=== PATIENT | female | born 1960 | race Caucasian/White ===

== ENCOUNTER → 2016-12-08 | Outpatient (CLI) | payer MEDICARE ==
[~2016-12-08] MED LIST: AMBIEN 5MG TABLE5 MG PO; AMITRIPTYLINE H10 M1 PO; AMITRIPTYLINE50 MG PO; AMOXICILLIN 8751 TAB PO; ASPI325T6 PO; ASPIR-LOW81 MG PO; ASPIR-LOX325 MG PO; ASPIRIN 32325 MG/TAB PO; ASPIRIN 81M81 MG/TA2 PO; ASPIRIN E.C. 8181 MG PO; ATIVAN 0.50.5 MG/TAB PO; ATROVENT INHALE14 GM IH; AXERT12.5 MG PO; AZO-STANDARD95 MG PO; BENADRYL25 M2 PO; BIRTH CONTROL; BONINE25 MG PO; BUFFERED ASPIR325 M1 PO; BYSTOLIC5 MG PO; CARDENE 20MG CA20 M1 PO; CARDENE 20MG CA20 MG PO; CARISOPRODOL; CARISOPRODOL350 MG PO; CATAPRES 0.1MG0.1 MG PO; CEFTIN 250250 MG/TAB PO; CEFTIN500 MG PO; CELEXA20 MG PO; CELEXA40 MG PO; CHANTIX 1MG1 MG PO; CHANTIX START M1 TAB PO; CITALOPRAM20 MG PO; CLARITIN 1010 MG/TAB PO; CLOPIDOGREL; COLACE 100100 MG/CAP PO; COLACE1 SUP PO; CRANBERRY FRUI405 MG PO; CRANBERRY450 MG PO; CYMBALTA; CYMBALTA 60MG60 MG PO; DARVOCET N 101 UDTAB PO; DEXILANT30 MG PO; DISALCID750 MG PO; EFFIENT10 MG PO; ESTRACE PO; FERROUS SU325 MG/TAB PO; FLEXERIL 1010 MG/TAB PO; FLEXERIL5 MG PO; FUROSEMIDE; GABAPENTIN300 M1 PO; GYNODIOL1 MG PO; HYDROCHLOR50 MG PO; IMDUR 30MG30 MG/TAB PO; IMDUR30 MG PO; INSULIN NOVO100 U/ML SC; ISMO 20MG20 MG PO; KLONOPIN 1MG1 M1 PO; KLONOPIN 1MG1 MG PO; LASIX 20MG TABL20 MG PO; LASIX 40MG TABL40 MG PO; LASIX 80MG TABL80 MG PO; LASIX40 MG PO; LEVOTHROID0.1 MG PO; LEVOTHYROXINE0.1 MG PO; LEVOXYL; LEVOXYL0.1 MG PO; LEXAPRO 10MG10 MG PO; LINZESS145CAP PO; LIPITOR 40MG TA40 MG PO; LISINOPRIL2.5 MG PO; LOPRESSOR; LOPRESSOR 225 MG/TAB PO; LOPRESSOR 550 MG/TAB PO; LYRICA 150MG C150 MG PO; MACROBID 1100 MG/CAP PO; MAG-OX 400400 MG/TAB PO; MAGNESIUM250 M1 PO; METOPROLOL SR25 MG PO; METOPROLOL25 MG PO; METOPROLOL50 MG PO; MIRALAX PA17 GM/Dose PO; NAPROSYN500 MG PO; NASONEX SPRAY17 GM NS; NATURAL POTASS595 MG PO; NEURONTIN100 MG/CAP PO; NEURONTIN300 MG/CAP PO; NEXIUM40 MG PO; NIACIN500 M1 PO; NIACOR500 MG PO; NITROQUICK0.4 MG SL; NITROSTAT0.4 MG SL; NITROSTAT0.4 MG/TAB SL; NO DOZ; NORCO 325 MG-51 TAB PO; NOVOLOG 100U100 U/M1 SQ; NOVOLOG 100U100 U/ML SQ; NOVOLOG INSULIN PUMP SC; NOVOLOG100 U/ML; NOVOLOG100 U/ML IV; NOVOLOG100 U/ML SC; NOVOLOGMIX70/30 SC; PANTOPRAZOLE SO20 MG PO; PLAVIX 75MG TAB75 MG PO; POTASSIUM CHLO10 ME2 PO; POTASSIUM CL 220 MEQ PO; POTASSIUM595 MG PO; POTASSIUM99 MG PO; PRAMLINTIDE ACETATE; PREDNISONE10 MG PO; PREVACID30 MG PO; PRILOSEC 20MG20 MG PO; PRINIVIL; PRINIVIL2.5 MG PO; PROAIR HFA0.09 MG/AC IH; PROTONIX 40MG T40 MG PO; PROTONIX20 MG PO; PROVENTIL0.09 MG/A1 IH; PROZAC 20MG20 MG PO; RANEXA1000 MG PO; REGLAN 10MG10 MG/TAB PO; RT ADVAIR 228 DISKUS IH; RT SPIRIVA18 MCG IH; RT SPIRIVA18 MCG INH; SALSALATE500 MG PO; SALSALATE750 MG PO; SAVELLA25 MG PO; SAVELLA50 MG PO; SEE LIST; SOMA 350MG350 MG/TAB PO; SPIRIVA; SPIRIVA HANDIH18 MCG IH; SPIRIVA INH IH; SUDAFED30 MG PO; SYMLIN; SYMLIN0.6 MG/ML SC; TYLENOL ARTHRI650 M1 PO; ULTRAM 50MG TAB50 MG PO; ULTRAM ER100 MG PO; UNABLE; VIIBRYD20 MG; VIIBRYD20 MG PO; VIIBRYD40 MG PO; VITAMIN C BUFF500 MG PO; VITAMIN C1 TAB PO; VITAMIN C500 MG PO; VITAMIN D 400400 IU PO; VITAMIN D31000 I1 PO; VIVARIN200 MG PO; VYTORIN; VYTORIN PO; ZESTRIL 10MG10 MG PO; ZESTRIL 5MG5 MG PO; ZESTRIL2.5 MG PO; ZITHROMAX 250M250 MG PO; ZOCOR 20MG20 MG PO; ZOCOR 40MG40 MG PO; ZOFRAN 4MG T4 MG/TAB PO; ZOFRAN ODT4 MG PO; ZOLPIDEM5 MG PO; [UNRECOGNIZED DRUG - CODE] PO; [UNRECOGNIZED DRUG - OTHER]; [UNRECOGNIZED DRUG - OTHER]; [UNRECOGNIZED DRUG - OTHER]; [UNRECOGNIZED DRUG - OTHER]; [UNRECOGNIZED DRUG - OTHER]; [UNRECOGNIZED DRUG - OTHER] PO; [UNRECOGNIZED DRUG - REMARK] PO; [UNRECOGNIZED DRUG - REMARK] PO; [UNRECOGNIZED DRUG - SUPPLY]; see list
== END ==
LOC: BHSO 13:03
DX: F33.1 Major depressive disorder, recurrent, moderate (principal)

== ENCOUNTER 2017-02-21 11:43 | Inpatient (IN) | payer MEDICARE ==
[~2017-02-21] VITALS: Ht 154.9 cm; Wt 67.4 kg
[2017-02-21] VITALS (468 sets, daily range): BP systolic 101–128; BP diastolic 42–65; PULSE 89–93; TEMP 37.8; O2SAT 91–100
[~2017-02-21 11:43] MED LIST changes: -ASPIRIN 81M81 MG/TA2 PO; -AXERT12.5 MG PO; -BONINE25 MG PO; -CRANBERRY FRUI405 MG PO; -CRANBERRY450 MG PO; -KLONOPIN 1MG1 MG PO; -MACROBID 1100 MG/CAP PO; -NIACOR500 MG PO; -PROZAC 20MG20 MG PO; -ZOFRAN 4MG T4 MG/TAB PO
[2017-02-21 12:37] LABS: BASO % 0.1 % (0.0-2.0); GRAN # 18.3 (1.4-6.5); GRAN % 89.8 % (42.2-75.2); HEMOGLOBIN 12.1 g/dl (12.5-16.0); LYMPH # 0.7 (1.2-3.4); LYMPH % 3.4 % (20.0-51.0); MEAN CELL VOLUME 95 fl (80.0-100.0); MEAN CORPUSCULAR HEMOGLOBIN 32 pg (27.0-31.0); MEAN CORPUSCULAR HGB CONC 34 g/dl (33.0-37.0); MEAN PLATELET VOLUME 10.1 fl (7.4-10.4); MONO # 1.3 (0.1-0.6); MONO % 6.3 % (1.7-9.3); PLATELET COUNT 319 K/mm3 (130-400); RED BLOOD COUNT 3.73 M/mm3 (4.10-5.30); REDCELL DISTRIBUTION WIDTH-CV 12.3 % (11.5-14.5)
[2017-02-21 12:45] LABS: INR 1.2 (0.8-3.0); PROTHROMBIN TIME 12.8 SECONDS (9.7-12.8)
[2017-02-21 12:48] LABS: AMMONIA < 9 umol/L (11-35)
[2017-02-21 12:49] LABS: HEMATOCRIT 35.3 % (37.0-47.0); WHITE BLOOD COUNT 20.3 K/mm3 (4.8-10.8)
[2017-02-21 12:53] LABS: ADJUSTED CALCIUM 8.6 mg/dL (8.4-10.2); ALANINE AMINOTRANSFERASE 23 U/L (9-52); ALBUMIN 4.1 gm/dL (3.5-5.0); ALKALINE PHOSPHATASE 83 U/L (50-136); ANION GAP 11 mmol/L (7-16); BILIRUBIN,TOTAL 0.8 mg/dL (0.0-1.0); BLOOD UREA NITROGEN 15 mg/dL (7-17); CALCIUM 8.7 mg/dL (8.4-10.2); CARBON DIOXIDE 30 mmol/L (22-30); CHLORIDE 98 mmol/L (98-107); GLUCOSE 123 mg/dL (74-106); LIPASE 15 U/L (23-300); POTASSIUM 3.3 mmol/L (3.4-5.0); SODIUM 138 mmol/L (137-145); TOTAL PROTEIN 7.5 gm/dL (6.4-8.2)
[2017-02-21 12:55] LABS: ACETAMINOPHEN < 10 ug/mL (10-30); C-REACTIVE PROTEIN 0.5 mg/dL (0.0-0.9); SALICYLATE < 1.0 mg/dL
[2017-02-21 13:05] LABS: TROPONIN-I 0.242 ng/mL (0.000-0.034)
[2017-02-21 13:31] LABS: PH 6 (5-8); SQUAMOUS EPITHELIAL 0-2 /hpf; URINE APPEARANCE Hazy; URINE BACTERIA None Seen /hpf; URINE BILIRUBIN Negative (NEGATIVE); URINE BLOOD Negative (NEGATIVE); URINE COLOR Amber; URINE GLUCOSE 3+ (NEGATIVE); URINE KETONE Trace (NEGATIVE); URINE RBC 0-2 /hpf; URINE UROBILINOGEN Negative (NEGATIVE)
[2017-02-21 13:37] LABS: AMPHETAMINE URINE POSITIVE; BARBITURATES URINE NEGATIVE; BENZODIAZEPINES URINE POSITIVE; BUPRENORPHINE URINE NEGATIVE; METHADONE URINE NEGATIVE; OPIATES URINE NEGATIVE; OXYCODONE URINE NEGATIVE; PHENCYCLIDINE URINE NEGATIVE; PROPOXYPHENE URINE NEGATIVE; THC CANNABINOIDS URINE NEGATIVE
[2017-02-21 18:22] LABS: MAGNESIUM 1.8 mg/dL (1.6-2.3)
[2017-02-21 18:45] LABS: TROPONIN-I 0.254 ng/mL (0.000-0.034)
[2017-02-21 21:18] LABS: BASO % 0.2 % (0.0-2.0); GRAN # 9.2 (1.4-6.5); GRAN % 80.6 % (42.2-75.2); LYMPH # 1.1 (1.2-3.4); LYMPH % 9.7 % (20.0-51.0); MEAN CELL VOLUME 96 fl (80.0-100.0); MEAN CORPUSCULAR HGB CONC 34 g/dl (33.0-37.0); MEAN PLATELET VOLUME 10.1 fl (7.4-10.4); MONO # 1.1 (0.1-0.6); MONO % 9.2 % (1.7-9.3); PLATELET COUNT 254 K/mm3 (130-400); RED BLOOD COUNT 3.29 M/mm3 (4.10-5.30); REDCELL DISTRIBUTION WIDTH-CV 12.7 % (11.5-14.5); WHITE BLOOD COUNT 11.4 K/mm3 (4.8-10.8)
[2017-02-21 21:34] LABS: HEMATOCRIT 31.6 % (37.0-47.0); HEMOGLOBIN 10.8 g/dl (12.5-16.0); MEAN CORPUSCULAR HEMOGLOBIN 33 pg (27.0-31.0)
[2017-02-22] VITALS (922 sets, daily range): BP systolic 95–127; BP diastolic 39–58; PULSE 77–97; TEMP 36.4–36.6; O2SAT 80–100
[2017-02-22 06:39] LABS: BASO % 0.2 % (0.0-2.0); GRAN # 7.7 (1.4-6.5); GRAN % 71.7 % (42.2-75.2); LYMPH # 1.6 (1.2-3.4); LYMPH % 15.1 % (20.0-51.0); MEAN CELL VOLUME 99 fl (80.0-100.0); MEAN CORPUSCULAR HGB CONC 33 g/dl (33.0-37.0); MEAN PLATELET VOLUME 10.7 fl (7.4-10.4); MONO # 1.4 (0.1-0.6); MONO % 12.6 % (1.7-9.3); PLATELET COUNT 255 K/mm3 (130-400); RED BLOOD COUNT 3.25 M/mm3 (4.10-5.30); REDCELL DISTRIBUTION WIDTH-CV 13.1 % (11.5-14.5); WHITE BLOOD COUNT 10.8 K/mm3 (4.8-10.8)
[2017-02-22 06:43] LABS: HEMATOCRIT 32.3 % (37.0-47.0); HEMOGLOBIN 10.5 g/dl (12.5-16.0); MEAN CORPUSCULAR HEMOGLOBIN 32 pg (27.0-31.0)
[2017-02-22 06:52] LABS: ADJUSTED CALCIUM 8.5 mg/dL (8.4-10.2); ALBUMIN 3.1 gm/dL (3.5-5.0); BILIRUBIN,TOTAL 0.6 mg/dL (0.0-1.0); CALCIUM 7.8 mg/dL (8.4-10.2); CREATININE, serum 0.61 mg/dL (0.52-1.25); MAGNESIUM 1.9 mg/dL (1.6-2.3); PHOSPHOROUS 2.8 mg/dL (2.5-4.5); POTASSIUM 3.9 mmol/L (3.4-5.0)
[2017-02-22 07:07] LABS: TROPONIN-I 0.244 ng/mL (0.000-0.034)
[2017-02-22 21:38] LABS: INR 1.1 (0.8-3.0); PROTHROMBIN TIME 12.1 SECONDS (9.7-12.8)
[2017-02-23] VITALS (436 sets, daily range): BP systolic 110–151; BP diastolic 47–76; PULSE 71–100; TEMP 36.2; O2SAT 89–100
[2017-02-23 04:16] LABS: BASO % 0.3 % (0.0-2.0); EOS % 0.2 % (0-4.0); GRAN # 5.9 (1.4-6.5); GRAN % 66.1 % (42.2-75.2); LYMPH # 2.2 (1.2-3.4); LYMPH % 24.4 % (20.0-51.0); MEAN CELL VOLUME 98 fl (80.0-100.0); MEAN CORPUSCULAR HGB CONC 33 g/dl (33.0-37.0); MONO # 0.8 (0.1-0.6); MONO % 8.8 % (1.7-9.3); PLATELET COUNT 216 K/mm3 (130-400); RED BLOOD COUNT 3.27 M/mm3 (4.10-5.30); REDCELL DISTRIBUTION WIDTH-CV 12.8 % (11.5-14.5)
[2017-02-23 04:26] LABS: CALCIUM 7.8 mg/dL (8.4-10.2); CREATININE, serum 0.53 mg/dL (0.52-1.25); HEMATOCRIT 32.1 % (37.0-47.0); HEMOGLOBIN 10.5 g/dl (12.5-16.0); MEAN CORPUSCULAR HEMOGLOBIN 32 pg (27.0-31.0); POTASSIUM 3.5 mmol/L (3.4-5.0)
[2017-02-24 03:47] VITALS: BP 127/42; PULSE 87; TEMP 98.7
[2017-02-24 07:34] VITALS: BP 133/49; PULSE 86; TEMP 98.5
[2017-02-24 11:58] VITALS: BP 123/43; PULSE 89; TEMP 98.8
[2017-02-24 15:59] VITALS: BP 121/52; PULSE 94; TEMP 98.3
[2017-02-24 19:58] VITALS: BP 127/49; PULSE 88; TEMP 97.7
[2017-02-24 22:47] VITALS: BP 141/62; PULSE 72; TEMP 98.7
[2017-02-25 03:35] VITALS: BP 145/53; PULSE 77; TEMP 98.5
[2017-02-25 08:20] VITALS: BP 129/48; PULSE 85; TEMP 98.1
[2017-02-25] MEDS ORDERED: ASPIRIN E.C. 8181 MG PO (09:56)
[2017-02-25 11:36] VITALS: BP 142/59; PULSE 90; TEMP 98.5
== END 2017-02-25 14:35 | disposition home health service (06) | DRG 896 ==
LOC: COL.ER 11:43 → ICU 13:22 → MEDICAL 02-23 20:26
PROVIDERS: Emergency Medicine; Internal Medicine; Internal Medicine Interventional Cardiology
DX: F15.10 Other stimulant abuse, uncomplicated (principal); I21.4 Non-ST elevation (NSTEMI) myocardial infarction; J44.9 Chronic obstructive pulmonary disease, unspecified; F17.220 Nicotine dependence, chewing tobacco, uncomplicated; Z66 Do not resuscitate; E87.6 Hypokalemia; I95.9 Hypotension, unspecified; E10.649 Type 1 diabetes mellitus with hypoglycemia without coma; R56.9 Unspecified convulsions; Z96.41 Presence of insulin pump (external) (internal); Z95.1 Presence of aortocoronary bypass graft; Z79.4 Long term (current) use of insulin
CPT/HCPCS: 99232-AI; 99233-AI; 99239; C1751; C9113; J0696; J1630; J1644; J1650; J1815; J2060; J3480; J7030; J7042

== ENCOUNTER 2017-03-08 17:41 | Observation (INO) | payer MEDICARE ==
[~2017-03-08] VITALS: Ht 154.9 cm; Wt 61.8 kg
[2017-03-08 18:18] LABS: BASO % 0.3 % (0.0-2.0); EOS % 0.2 % (0-4.0); GRAN # 6.6 (1.4-6.5); GRAN % 70.6 % (42.2-75.2); HEMATOCRIT 39.8 % (37.0-47.0); HEMOGLOBIN 13.6 g/dl (12.5-16.0); LYMPH # 1.6 (1.2-3.4); LYMPH % 17.4 % (20.0-51.0); MEAN CELL VOLUME 94 fl (80.0-100.0); MEAN CORPUSCULAR HEMOGLOBIN 32 pg (27.0-31.0); MEAN CORPUSCULAR HGB CONC 34 g/dl (33.0-37.0); MEAN PLATELET VOLUME 10.3 fl (7.4-10.4); PLATELET COUNT 446 K/mm3 (130-400); RED BLOOD COUNT 4.24 M/mm3 (4.10-5.30); REDCELL DISTRIBUTION WIDTH-CV 12.5 % (11.5-14.5); WHITE BLOOD COUNT 9.4 K/mm3 (4.8-10.8)
[2017-03-08 18:21] LABS: INR 1.1 (0.8-3.0); PROTHROMBIN TIME 12.2 SECONDS (9.7-12.8)
[2017-03-08 18:24] LABS: PARTIAL THROMBOPLASTIN TIME 32.8 SECONDS (26.0-37.0)
[2017-03-08 18:33] LABS: ADJUSTED CALCIUM 9.2 mg/dL (8.4-10.2); ALANINE AMINOTRANSFERASE 28 U/L (9-52); ALBUMIN 3.8 gm/dL (3.5-5.0); ALKALINE PHOSPHATASE 130 U/L (50-136); ANION GAP 15 mmol/L (7-16); BILIRUBIN,TOTAL 0.6 mg/dL (0.0-1.0); BLOOD UREA NITROGEN 10 mg/dL (7-17); CARBON DIOXIDE 36 mmol/L (22-30); CREATININE, serum 0.73 mg/dL (0.52-1.25); GLUCOSE 110 mg/dL (74-106); SODIUM 139 mmol/L (137-145); TOTAL PROTEIN 7.2 gm/dL (6.4-8.2)
[2017-03-08 18:55] LABS: CHLORIDE 87 mmol/L (98-107); POTASSIUM 2.6 mmol/L (3.4-5.0); TROPONIN-I < 0.012 ng/mL (0.000-0.034)
[2017-03-08 20:15] LABS: PH 7 (5-8); SQUAMOUS EPITHELIAL 0-2 /hpf; URINE APPEARANCE Clear; URINE BACTERIA None Seen /hpf; URINE BILIRUBIN Negative (NEGATIVE); URINE BLOOD Negative (NEGATIVE); URINE COLOR Yellow; URINE GLUCOSE Negative (NEGATIVE); URINE KETONE Negative (NEGATIVE); URINE RBC 0-2 /hpf; URINE UROBILINOGEN Negative (NEGATIVE); URINE WBC 0-2 /hpf
[2017-03-08 20:31] LABS: AMPHETAMINE URINE NEGATIVE; BARBITURATES URINE NEGATIVE; BENZODIAZEPINES URINE NEGATIVE; BUPRENORPHINE URINE NEGATIVE; METHADONE URINE NEGATIVE; OPIATES URINE NEGATIVE; OXYCODONE URINE NEGATIVE; PHENCYCLIDINE URINE NEGATIVE; PROPOXYPHENE URINE NEGATIVE; THC CANNABINOIDS URINE NEGATIVE
[2017-03-08 21:05] LABS: TROPONIN-I < 0.012 ng/mL (0.000-0.034)
[2017-03-08 21:07] LABS: POTASSIUM 2.8 mmol/L (3.4-5.0)
[2017-03-08] MEDS ORDERED: PROZAC 20MG20 MG PO (21:28)
[2017-03-08] MEDS ORDERED: ZOFRAN 4MG T4 MG/TAB PO (21:29)
[2017-03-08] MEDS ORDERED: BONINE25 MG PO (21:29)
[2017-03-08] MEDS ORDERED: KLONOPIN 1MG1 MG PO (21:30)
[2017-03-08] MEDS ORDERED: SALSALATE750 MG PO (21:30)
[2017-03-08] MEDS ORDERED: NIACOR500 MG PO (21:31)
[2017-03-08] MEDS ORDERED: AXERT12.5 MG PO (21:31)
[2017-03-08] MEDS ORDERED: CRANBERRY FRUI405 MG PO (21:33)
[2017-03-08] MEDS ORDERED: NATURAL POTASS595 MG PO (21:33)
[2017-03-08] MEDS ORDERED: BENADRYL25 M2 PO (21:34)
[2017-03-08] MEDS ORDERED: MAGNESIUM250 M1 PO (21:36)
[2017-03-08 22:58] VITALS: BP 125/72; PULSE 71; TEMP 97.9
[2017-03-09] VITALS (761 sets, daily range): BP systolic 99–132; BP diastolic 44–83; PULSE 70–84; TEMP 97.7–98.9; O2SAT 77–100
[2017-03-09 00:01] LABS: MAGNESIUM 1.8 mg/dL (1.6-2.3)
[2017-03-09 08:06] LABS: CALCIUM 8.8 mg/dL (8.4-10.2); CREATININE, serum 0.76 mg/dL (0.52-1.25); POTASSIUM 4.3 mmol/L (3.4-5.0)
[2017-03-09] MEDS ORDERED: CRANBERRY450 MG PO (13:17)
[2017-03-09] MEDS ORDERED: ASPIRIN 81M81 MG/TA2 PO (13:21)
== END 2017-03-09 17:13 | disposition home or self-care (01) ==
LOC: COL.ER 17:41 → IMCU 20:17 → EU 03-09 10:52 → IMCU 03-09 10:52
PROVIDERS: Emergency Medicine; Family Medicine; Nurse Practitioner Family
DX: R07.9 Chest pain, unspecified (principal); E10.649 Type 1 diabetes mellitus with hypoglycemia without coma; E87.6 Hypokalemia; F33.9 Major depressive disorder, recurrent, unspecified; F41.1 Generalized anxiety disorder; F15.90 Other stimulant use, unspecified, uncomplicated; F19.94 Other psychoactive substance use, unspecified with psychoactive substance-induced mood disorder; Z79.4 Long term (current) use of insulin; Z96.41 Presence of insulin pump (external) (internal); E87.8 Other disorders of electrolyte and fluid balance, not elsewhere classified; M79.7 Fibromyalgia; F17.210 Nicotine dependence, cigarettes, uncomplicated; J44.9 Chronic obstructive pulmonary disease, unspecified; K21.9 Gastro-esophageal reflux disease without esophagitis; E78.5 Hyperlipidemia, unspecified; I10 Essential (primary) hypertension; I25.10 Atherosclerotic heart disease of native coronary artery without angina pectoris; Z95.1 Presence of aortocoronary bypass graft; Z95.5 Presence of coronary angioplasty implant and graft; Z86.73 Personal history of transient ischemic attack (TIA), and cerebral infarction without residual deficits; Z86.718 Personal history of other venous thrombosis and embolism; E03.9 Hypothyroidism, unspecified; Z66 Do not resuscitate
CPT/HCPCS: 90791-AI; A9502; G0378; J1650; J1815; J2785; J7030

== ENCOUNTER → 2017-03-16 | Outpatient (CLI) | payer MEDICARE ==
[~2017-03-16] MED LIST changes: +ASPIRIN 81M81 MG/TA2 PO; +AXERT12.5 MG PO; +BONINE25 MG PO; +CRANBERRY FRUI405 MG PO; +CRANBERRY450 MG PO; +KLONOPIN 1MG1 MG PO; +MACROBID 1100 MG/CAP PO; +NIACOR500 MG PO; +PROZAC 20MG20 MG PO; +ZOFRAN 4MG T4 MG/TAB PO
== END ==
LOC: BHSO 13:02
DX: F31.73 Bipolar disorder, in partial remission, most recent episode manic (principal)

== ENCOUNTER → 2017-04-13 | Outpatient (CLI) | payer MEDICARE | LOC: BHSO 15:20 | DX: F31.73 Bipolar disorder, in partial remission, most recent episode manic (principal) ==

== ENCOUNTER 2017-04-14 12:32 | Emergency (ER) | payer MEDICARE ==
[2009-07-09 01:34] VITALS: BP 102/50
[~2017-04-14] VITALS: Ht 157.5 cm; Wt 64.5 kg
[~2017-04-14 12:32] MED LIST changes: -MACROBID 1100 MG/CAP PO
[2017-04-14 12:39] VITALS: TEMP 97
[2017-04-14 12:57] LABS: BASO % 0.2 % (0.0-2.0); EOS # 0.1 (0.0-0.7); EOS % 0.6 % (0-4.0); GRAN # 9.2 (1.4-6.5); GRAN % 69.5 % (42.2-75.2); LYMPH # 2.4 (1.2-3.4); LYMPH % 18.3 % (20.0-51.0); MEAN CELL VOLUME 94 fl (80.0-100.0); MEAN CORPUSCULAR HEMOGLOBIN 32 pg (27.0-31.0); MEAN CORPUSCULAR HGB CONC 34 g/dl (33.0-37.0); MEAN PLATELET VOLUME 10.6 fl (7.4-10.4); MONO # 1.5 (0.1-0.6); PLATELET COUNT 320 K/mm3 (130-400); REDCELL DISTRIBUTION WIDTH-CV 12.1 % (11.5-14.5); WHITE BLOOD COUNT 13.3 K/mm3 (4.8-10.8)
[2017-04-14 12:58] LABS: HEMATOCRIT 34.9 % (37.0-47.0)
[2017-04-14 13:09] LABS: ADJUSTED CALCIUM 9.3 mg/dL (8.4-10.2); ALBUMIN 4.2 gm/dL (3.5-5.0); BILIRUBIN,TOTAL 0.6 mg/dL (0.0-1.0); CALCIUM 9.5 mg/dL (8.4-10.2); CREATININE, serum 0.67 mg/dL (0.52-1.25); TOTAL PROTEIN 7.9 gm/dL (6.4-8.2)
[2017-04-14 13:26] LABS: POTASSIUM 2.8 mmol/L (3.4-5.0)
[2017-04-14 16:29] LABS: PH 6 (5-8); URINE APPEARANCE Cloudy; URINE BACTERIA Rare /hpf; URINE BILIRUBIN Negative (NEGATIVE); URINE BLOOD 3+ (NEGATIVE); URINE COLOR Red; URINE GLUCOSE 3+ (NEGATIVE); URINE KETONE Negative (NEGATIVE); URINE RBC >50 /hpf; URINE UROBILINOGEN Negative (NEGATIVE)
[2017-04-14 16:30] LABS: URINE WBC >50 /hpf
[2017-04-14] MEDS ORDERED: MACROBID 1100 MG/CAP PO (16:41)
[2017-04-14 16:55] VITALS: BP 114/55; PULSE 73
[2017-04-14 17:19] LABS: AMPHETAMINE URINE POSITIVE; BARBITURATES URINE NEGATIVE; BENZODIAZEPINES URINE NEGATIVE; BUPRENORPHINE URINE NEGATIVE; METHADONE URINE NEGATIVE; OPIATES URINE NEGATIVE; OXYCODONE URINE NEGATIVE; PHENCYCLIDINE URINE NEGATIVE; PROPOXYPHENE URINE NEGATIVE; THC CANNABINOIDS URINE NEGATIVE
== END 2017-04-14 17:29 | disposition home or self-care (01) ==
LOC: COL.ER 12:32
PROVIDERS: Emergency Medicine
DX: E11.649 Type 2 diabetes mellitus with hypoglycemia without coma (principal); N39.0 Urinary tract infection, site not specified; E87.1 Hypo-osmolality and hyponatremia; Z79.4 Long term (current) use of insulin; I25.10 Atherosclerotic heart disease of native coronary artery without angina pectoris; F17.200 Nicotine dependence, unspecified, uncomplicated; Z95.1 Presence of aortocoronary bypass graft; I10 Essential (primary) hypertension
CPT/HCPCS: J7030